=== PATIENT | female | born 1955 | race Caucasian/White ===

== ENCOUNTER 2016-08-12 13:24 | Outpatient (CLI) | payer OTHER | END 2016-08-12 13:25 | disposition home or self-care (01) | DX: G47.33 Obstructive sleep apnea (adult) (pediatric) (principal); G47.00 Insomnia, unspecified ==

== ENCOUNTER 2016-10-11 10:58 | Outpatient (CLI) | payer OTHER | END 2016-10-11 10:59 | disposition home or self-care (01) | LOC: SC 10:58 | PROVIDERS: ATTEND Nurse Practitioner Family | DX: G47.33 Obstructive sleep apnea (adult) (pediatric) (principal) | CPT/HCPCS: 99212; 99214 ==

== ENCOUNTER 2017-01-10 11:15 | Outpatient (CLI) | payer OTHER | END 2017-01-10 11:16 | disposition home or self-care (01) | LOC: SC 11:15 | PROVIDERS: ATTEND Nurse Practitioner Family | DX: G47.33 Obstructive sleep apnea (adult) (pediatric) (principal) | CPT/HCPCS: 99212; 99214 ==

== ENCOUNTER 2017-07-18 10:37 | Outpatient (CLI) | payer OTHER | END 2017-07-18 10:38 | disposition home or self-care (01) | LOC: SC 10:37 | PROVIDERS: ATTEND Nurse Practitioner Family | DX: G47.33 Obstructive sleep apnea (adult) (pediatric) (principal) | CPT/HCPCS: 99212; 99214 ==

== ENCOUNTER 2018-10-02 12:49 | Outpatient (CLI) | payer OTHER | END 2018-10-02 12:50 | disposition home or self-care (01) | LOC: SC 12:49 | PROVIDERS: ATTEND Internal Medicine Pulmonary Disease | DX: G47.33 Obstructive sleep apnea (adult) (pediatric) (principal) | CPT/HCPCS: 99212; 99213 ==

== ENCOUNTER 2018-12-01 14:06 | Emergency (ER) | payer OTHER ==
[2018-12-01 14:19] VITALS: BP 136/90
--- NOTE | 2018-12-01 15:25 | ED Physician Documentation ---
PD HPI GI BLEED - Stated complaint Stated Complaint: FEMALE - Chief complaint Chief Complaint: General - History obtained from History obtained from: Patient - History of Present Illness Timing - onset: How many weeks ago (3) Timing - duration: Weeks (3) Timing - details: Gradual onset, Waxing and waning Associated symptoms: BRBPR (occasional red blood; mostly having rectal pain, worse after BMs. Stool is formed and moderately firm. Not constipated.). No: Abdominal pain Contributing factors: No: Sick contact, Bad food Similar symptoms before: Diagnosis (hemorrhoids) Recently seen: Not recently seen Review of Systems Constitutional: denies: Fever, Chills Nose: denies: Rhinorrhea / runny nose, Congestion Throat: denies: Sore throat Respiratory: denies: Cough GI: denies: Nausea, Vomiting, Constipation : denies: Dysuria, Frequency PD PAST MEDICAL HISTORY - Past Medical History GI: Hemorrhoids Psych: Depression, Anxiety Musculoskeletal: Osteoarthritis - Past Surgical History Past Surgical History: Yes General: Bowel surgery HEENT: Tonsil/Adenoidectomy - Present Medications Home Medications: Ambulatory Orders Medication Instructions Recorded Confirmed Aspirin [Aspir 81] 81 mg PO DAILY #30 tablet. 07/25/13 05/16/14 Multivitamin [Multivitamins] 1 each PO 07/25/13 05/16/14 SUMAtriptan [Imitrex] 25 mg PO ONCE 07/25/13 05/16/14 Magnesium Hydroxide [Milk of 60 ml DAILY 10/04/13 05/16/14 Magnesia] Citalopram Hydrobromide 40 mg DAILY 05/16/14 05/16/14 [Citalopram HBr] Guanfacine HCl [Tenex] 2 mg PO QPM 05/16/14 05/16/14 Oxycodone HCl/Acetaminophen 1 - 2 each PO Q6H PRN #20 tablet 05/16/14 [Percocet 5-325 mg Tablet] Propranolol [Inderal] 10 mg DAILY 05/16/14 05/16/14 lamoTRIgine [LaMICtal] 25 mg BID 05/16/14 05/16/14 Docusate Sodium 100 mg PO DAILY #30 capsule 12/01/18 Hydrocodone/Acetaminophen [[place] 1 each PO Q6H PRN #15 tablet 12/01/18 5-325 Tablet] Hydrocortisone Acetate [Anucort-Hc] 25 mg RC DAILY #7 supp.rect 12/01/18 - Allergies Allergies/Adverse Reactions: Allergies Allergy/AdvReac Type Severity Reaction Status Date / Time No Known Drug Allergies Allergy Verified 12/01/18 14:19 - Social History Does the pt smoke?: No Smoking Status: Never smoker Does the pt drink ETOH?: No Does the pt have substance abuse?: No - Immunizations Immunizations: TDAP >10years/unknown PD ED PE NORMAL - Vitals Vital signs reviewed: Yes - General General: Alert and oriented X 3, No acute distress, Well developed/nourished - Cardiac Cardiac: RRR, No murmur - Respiratory Respiratory: Clear bilaterally - Abdomen Abdomen: Normal bowel sounds, Soft, Non tender, Non distended - Female Female : Deferred - Rectal Rectal: Other (external hemorrhoids swollen and tender without any appearance of thrombosed. Internal also with some swelling. No blood in rectum at this time. ) - Derm Derm: Normal color, Warm and dry Results - Vitals Vitals: Oxygen O2 Source Room air PD MEDICAL DECISION MAKING - ED course Complexity details: considered differential (hemorrhoid. Does not seem thrombosed. ), d/w patient Departure - Departure Disposition: 01 Home, Self Care Clinical Impression: Rectal pain Hemorrhoid Qualifiers: Hemorrhoid type: unspecified Qualified Code(s): K64.9 - Unspecified hemorrhoids Condition: Stable Record reviewed to determine appropriate education?: Yes Instructions: ED Hemorrhoids Follow-Up: MARK BOCANEGRA DO [Primary Care Provider] - Jeffry Blount MD [Provider Admit Priv/Credential] - Prescriptions: Docusate Sodium 100 mg PO DAILY #30 capsule Hydrocodone/Acetaminophen [[place] 5-325 Tablet] 1 each PO Q6H PRN #15 tablet PRN Reason: Pain Hydrocortisone Acetate [Anucort-Hc] 25 mg RC DAILY #7 supp.rect Comments: Your hemorrhoids seem very tender. I do not see or feel any thrombosed hemorrhoids that would need cutting open at this time. We will try some anti- inflammatory suppositories as well as a stool softener. Add pain medicine if needed for pain. Stay well-hydrated. He can continue the Preparation H and soaking baths. Follow-up with surgery, call for an appointment for early next week for follow- up on this. If not improved, they can do visual look with a sigmoidoscope or such or have other ideas on treatment. Discharge Date/Time: 12/01/18 16:08
[2018-12-01] MEDS ORDERED: HYDROcod/ACETAM 5/325 MG TABLET PO STA (15:42)
[2018-12-01] MEDS ORDERED: DOCUSATE SODIUM 100 MG CAPSULE PO STA (15:46)
== END 2018-12-01 16:08 | disposition home or self-care (01) ==
LOC: ED 14:06
DX: K62.89 Other specified diseases of anus and rectum (principal); K64.9 Unspecified hemorrhoids
CPT/HCPCS: 99283; 99284; A9270

== ENCOUNTER 2019-10-08 15:48 | Outpatient (CLI) | payer OTHER ==
[2019-10-08 16:39] VITALS: BP 130/66
--- NOTE | 2019-10-08 16:39 | SLEEP CARE CONSULTATION ---
Information from patient questionnaire entered by Mavis Barillas. I have reviewed and concur with the information entered by Mavis Barillas. This document represents the service I personally performed and the decisions made by me, Juliana Friend, RN, MSN, [employer]. History of Present Illness Service Date and Time: 10/08/2019 1548 Previous diagnosis: Very Severe, Obstructive Sleep Apnea-Hypopnea Syndrome AHI: 76.3 (in 2009) Reason for follow up: annual (last seen 2018) Equipment type: CPAP Equipment obtained from: [email or web address] (getting supplies as needed) Mask style: Nasal Backup mask available: Yes Last cushion change: 2 weeks ago Prior sleep studies: Yes Year and Where: 2009 - [facility] Type of Sleep Study: Polysomnography CPAP Compliance Data - Data Reviewed with Patient Average duration of nightly device use: 7hr 42 min Compliance rate %: 98.9 Current pressure setting (cmH2O): 10-13 Humidity settin Heated hose settin Average residual AHI: 1.2 Average large leak: 0 Subjective Missed days of use due to: reports: other (no ) Patient concerns: reports: nasal congestion (most nights, uses nasal spray, no interference of CPAP use ), dry mouth, nose, throat (dry mouth a few times a week ), other (tosses and turns every night for about an hour on average/ She does not read but does play solataire to relax in bed). 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 ) Initial [place] Sleepiness Scale score: 21 (in 2009) Current [place] Sleepiness Scale score: 18 Allergies and Home Medications Home medication list reviewed: No (no changes) Review of Systems Review of systems same as previous: Yes Physical Exam Blood Pressure: 130/66 Cuff size: long Heart Rate: 66 O2 Saturation: 98 Height: 5 ft 3 in Weight: 232 lb 12.8 oz (on low carb diet) Body Mass Index: 41.2 BMI Classification: Morbidly Obese Impression and Plan 1. Obstructive Sleep Apnea-Hypopnea Syndrome, very severe, with good treatment compliance and good apnea control. On CPAP therapy, the patient has better sleep quality and is more rested overall. However, she is waking to air hunger most nights even though the residual AHI is low. I will change her pressure slightly to [id number] until I get current CPAP data. Last data on card was until . She is to contact me if the pressure change is uncomfortable or does not resolve air hunger. Oral dryness can be reduced by adjusting humidity setting higher or heated hose lower or by adjusting both settings. Printed instructions will be given at check out on how to change humidity and heated hose settings. Rationale explaining why to change discussed. Patient advised that chronic oral dryness can affect dental health and advised to follow up with dentist. In addition, there are oral dryness products that can be used to reduce dryness. Patient to discuss best option with dentist. Patient's apnea severity and rationale for treatment to reduce apnea, improve sleep quality and reduce cardiovascular and cerebrovascular events was reviewed. 2. Insomnia, that seems to be from irregular wake time, concerns on mind, looking at clock. Thus she was advised to leave bedroom when unable to fall asleep after approximately 20 minutes and write out concerns as a release and then engage in quiet activity such as her solitaire until sleepy enough to go to bed. This is to be repeated as often as necessary to associate the bed with sleep. In addition, she is to set the alarm and cover the clock with rationale discussed. [employer] How to sleep better pamphlet given and reviewed. She did not want to complete diary and will follow up as needed per her request. 3. Possible Hypoxia reported by patient when recovering from knee surgery. Evidently the oxygen alarms went off frequently even with CPAP. She wonders if this is why she feels air hunger even with low residual AHI. Thus I will order an overnight pulse oximetry with CPAP use to evaluate if any hypoxia still present and if further evaluation is indicated with a manual titration study. If insurance denies, I will confer with Dr. Hammond. Patient agrees to plan to complete over night oximetry and CPAP titration if indicated. * Change auto CPAP pressure to 11-14 cmH2O * Notify me if snoring with mask or feeling that the pressure is too much or too little * Implement methods to reduce insomnia and oral dryness. * Attempt to lose weight * over night pulse oximetry with CPAP. * Call this office if any problems using CPAP * Return for follow up in 1 year if complaint, or sooner if concerns arise Addendum: Recent CPAP compliance received. 06/12 to 10/09/19 showed that patient used CPAP an average of 7 hours and 7 minutes a night with 97.5% compliance of over 4 hours of use demetria past 120 days. Her 90% pressure is 11.6cmH20 with a residual AHI of 1.0. Mask leaks average is zero. Thus follow up in one year unless further evaluation of hypoxia indicated from over night pulse oximetry. Visit Type: In Office Time Spent with Patient (minutes): 35 Provider Statement: I spent 100% of the Face to Face Visit with the patient with greater than 50% spent counseling the patient and coordination of care.
== END 2019-10-08 15:49 | disposition home or self-care (01) ==
LOC: SC 15:48
PROVIDERS: ATTEND Nurse Practitioner Family
DX: G47.33 Obstructive sleep apnea (adult) (pediatric) (principal); G47.00 Insomnia, unspecified; E66.01 Morbid (severe) obesity due to excess calories; Z68.41 Body mass index [BMI] 40.0-44.9, adult
CPT/HCPCS: 99212; 99214

== ENCOUNTER 2020-05-28 09:38 | Outpatient (CLI) | payer OTHER ==
--- NOTE | 2020-05-28 10:27 | SLEEP CARE CONSULTATION ---
Information from patient questionnaire entered by Mavis Barillas. I have reviewed and concur with the information entered by Mavis Barillas. This document represents the service I personally performed and the decisions made by , Pearl Ferrara ARNP. History of Present Illness Service Date and Time: 05/28/2020 09 Previous diagnosis: Very Severe, Obstructive Sleep Apnea-Hypopnea Syndrome AHI: 76.3 (in 2009) Reason for follow up: other (8 month to transfer DME) Equipment type: CPAP Equipment obtained from: [employer] (They were dropped due to a late payment, need new DME) Mask style: Nasal Backup mask available: Yes (old mask) Last cushion change: 2 weeks ago Prior sleep studies: Yes Year and Where: 2009 - [facility] HPI additional information: JOSEPH OWUSU was diagnosed to have very severe, AHI 76.3, obstructive sleep apnea-hypopnea syndrome and returned today for CPAP therapy 8 month, need DME transfer follow-up. CPAP Compliance Data - Data Reviewed with Patient Average duration of nightly device use: 7 hr 38 mins Compliance rate %: 92.2 (180 days) Current pressure setting (cmH2O): 11-14 Humidity settin Heated hose settin Average residual AHI: 1.1 Central apnea: 0.1 Obstructive apnea: 0.6 Average large leak: 0 Subjective Patient concerns: reports: air blowing in eyes (better with adjusting mask. she tosses and turns a lot in bed), mask leak noise, dry mouth, nose, throat (drinks water if wakes up at night for dryness), other (headache; extra air in mouth occasionally). denies: aerophagia, mask discomfort, condensation in mask/hose, nasal congestion, epistaxis Observed to snore while using device: No (once in a while does snore) Current pressure setting perceived as: comfortable On therapy, patient: reports: sleeping better, awakening more refreshed, being more awake and alert during the day, more rested overall. denies: drowsiness while driving Initial [place] Sleepiness Scale score: 21 (in 2009) Current [place] Sleepiness Scale score: 24 Allergies and Home Medications Home medication list reviewed: Yes (no changes) Review of Systems Review of systems same as previous: Yes (no changes) Physical Exam Heart Rate: 81 O2 Saturation: 98 Height: 5 ft 3 in Weight: 234 lb Body Mass Index: 41.4 BMI Classification: Morbidly Obese Impression and Plan 1. Obstructive Sleep Apnea-Hypopnea Syndrome, very severe, with good treatment compliance and good apnea control. On CPAP therapy, the patient has better sleep quality and is more rested overall. She has some mouth dryness and keeps water at the bedside to sip at night. Oral dryness can be reduced by adjusting humidity setting higher or heated hose lower or by adjusting both settings. Verbal instructions given on how to change humidity and heated hose settings with rationale explaining why to change. In addition, there are oral dryness products that can be used to reduce dryness such as Biotene products, Dry mouth rinse and Xylomelts. She is wearing the mask but is not actually sleeping whole time in mask. She is still sleepy from not sleeping more than 5 hours a night. She has a hard time keeping her mind quiet so she can go to sleep. She continues to sometimes take a day nap. She was advised to get out of bed when this happens and write out her thoughts. This can help her feel she has dealt with the worries and her mind can quiet down for sleeping. She voiced understanding. Patient is unable to get supplies at her current DME. We will transfer her care to another DME. I will have my restorative coordinator inform of her DME options. The patients CPAP is also over 5 years old and of reasonable use. Thus, the CPAP will be updated. The new CPAPs also have a better humidity system which could assist control of patients dryness symptoms. A DWO prescription will include an update of her machine be made. Compliance guidelines for new device and follow up discussed. Patient advised to contact this office if further supply problems. Patient's apnea severity and rationale for treatment to reduce apnea, improve sleep quality and reduce cardiovascular and cerebrovascular events was reviewed. * Continue autoCPAP pressure at 10-14 cmH2O * Transfer DME * Update CPAP machine * Notify me if snoring with mask or feeling that the pressure is too much or too little * Attempt to lose weight * Call this office if any problems using CPAP * Return for follow up 1 month after obtaining new machine, or sooner if concerns arise Counseling Topics: Spare mask, Weight loss health impact Visit Type: In Office Time Spent with Patient (minutes): 27 Provider Statement: I spent 100% of the Face to Face Visit with the patient with greater than 50% spent counseling the patient and coordination of care.
== END 2020-05-28 09:39 | disposition home or self-care (01) ==
LOC: SC 09:38
PROVIDERS: ATTEND Nurse Practitioner Family
DX: G47.33 Obstructive sleep apnea (adult) (pediatric) (principal); E66.01 Morbid (severe) obesity due to excess calories; Z68.41 Body mass index [BMI] 40.0-44.9, adult
CPT/HCPCS: 99212; 99213

== ENCOUNTER 2020-09-12 14:00 | Outpatient (CLI) | payer OTHER ==
--- NOTE | 2020-09-12 14:32 | SLEEP CARE CONSULTATION ---
Information from patient questionnaire entered by Mavis Barillas. I have reviewed and concur with the information entered by Mavis Barillas. This document represents the service I personally performed and the decisions made by , Pearl Ferrara ARNP. History of Present Illness Service Date and Time: 09/12/20201399 Previous diagnosis: Very Severe, Obstructive Sleep Apnea-Hypopnea Syndrome AHI: 76.3 (in 2009) Reason for follow up: first compliance after device update Equipment type: CPAP Equipment obtained from: [employer] (getting supplies as needed) Mask style: Nasal Backup mask available: Yes (old mask) Last cushion change: 1 week ago Prior sleep studies: Yes Year and Where: [address] - [facility] Type of Sleep Study: Polysomnography HPI additional information: JOSEPH OWUSU was diagnosed to have very severe, AHI 76.3, obstructive sleep apnea-hypopnea syndrome and returned today for CPAP therapy first compliance after updating device follow-up. CPAP Compliance Data - Data Reviewed with Patient Average duration of nightly device use: 7 hr 31 min Compliance rate %: 96.7 Current pressure setting (cmH2O): 11-14 Humidity settin Heated hose settin Average residual AHI: 0.8 Average large leak: 0 Subjective Missed days of use due to: reports: family emergency Patient concerns: reports: dry mouth, nose, throat (always have dry mouth), other (snore while using device). denies: aerophagia, mask discomfort, air blowing in eyes, mask leak noise, condensation in mask/hose, nasal congestion, epistaxis Observed to snore while using device: Yes (occasionally) Current pressure setting perceived as: comfortable On therapy, patient: reports: sleeping better, awakening more refreshed, being more awake and alert during the day, more rested overall. denies: drowsiness while driving Initial [place] Sleepiness Scale score: 21 (in 2009) Current [place] Sleepiness Scale score: 22 Allergies and Home Medications Home medication list reviewed: Yes (no changes) Review of Systems Review of systems same as previous: Yes (no changes) Physical Exam Heart Rate: 69 O2 Saturation: 98 Height: 5 ft 3 in Weight: 236 lb Body Mass Index: 41.8 BMI Classification: Morbidly Obese Impression and Plan 1. Obstructive Sleep Apnea-Hypopnea Syndrome, very severe, with good treatment compliance and excellent apnea control. On CPAP therapy, the patient has better sleep quality and is more rested overall. She states she gets dry mouth but this is chronic and occasionally snores through machine. Oral dryness can be reduced by adjusting humidity setting higher or heated hose lower or by adjusting both settings. Verbal instructions given on how to change humidity and heated hose settings with rationale explaining why to change. She voiced understanding. She has significant improvement of her sleep apnea and is satisfied with treatment at current pressure settings. We will make no changes at this time. Patient's apnea severity and rationale for treatment to reduce apnea, improve sleep quality and reduce cardiovascular and cerebrovascular events was reviewed. * Continue autoCPAP pressure at 11-14 cmH2O * Notify me if snoring with mask or feeling that the pressure is too much or too little * Attempt to lose weight * Call this office if any problems using CPAP * Return for follow up in 1 year, or sooner if concerns arise Counseling Topics: Spare mask, Weight loss health impact Visit Type: In Office Time Spent with Patient (minutes): 20 Provider Statement: I spent 100% of the Face to Face Visit with the patient with greater than 50% spent counseling the patient and coordination of care.
== END 2020-09-12 14:01 | disposition home or self-care (01) ==
LOC: SC 14:00
PROVIDERS: ATTEND Nurse Practitioner Family
DX: G47.33 Obstructive sleep apnea (adult) (pediatric) (principal); E66.01 Morbid (severe) obesity due to excess calories; Z68.41 Body mass index [BMI] 40.0-44.9, adult
CPT/HCPCS: 99212; 99213

== ENCOUNTER 2022-11-11 06:41 | Day surgery (SDC) | payer MEDICARE, OTHER ==
[2022-11-11] MEDS: LACTATED RINGERS 1,000 ML IV ONE ×2 (07:11→08:50)
[2022-11-11] MEDS: PROPARACAINE 0.5% OPHTH DROPS 15 ML ONE (07:15)
[2022-11-11] MEDS: KETOROLAC 0.45% OPHTH DROPS ONE (07:16)
[2022-11-11] MEDS: CYCLOPENTOLATE 1% OPHTH DROPS 2 ML ONE (07:17)
[2022-11-11] MEDS: PHENYLEPHRINE 2.5% OPHTH 2 ML DROPS ONE (07:18)
--- NOTE | 2022-11-11 07:47 | OPERATIVE REPORT ---
Operative Report - Other Other Information/Narrative: Date of Surgery: 11/11/22 Preop Dx: Retained lens fragment right eye. Cataract surgery was performed in the right eye on [id number]. Postop Dx: Same Procedure: Aspiration of retained lens fragment right eye Surgeon: Dr. Chilango Robison Anesthesia: Monitored anesthesia care Complications: None Operative Indications: This is a 67-year-old F under uncomplicated cataract surgery in the right eye on [id number]. at follow-up exam a nuclear fragment was noted in the inferior angle of the right eye. Indications for surgery were: - Potential inflammation, corneal damage, and vision loss from retained lens fragment The patient was consented at length concerning the risks and benefits of retained lens fragment removal after which the patient expressed a desire to proceed with surgery. Operative Procedure: The patient was taken into OR#3 and placed under monitored anesthesia care. A surgical time-out was conducted confirming correct patient, correct procedure, and correct surgical site. The patient was given topical anesthesia and then prepped and draped in the usual sterile fashion. The eye was entered at the 6 and 3 oclock positions. Intracameral Shugarcaine was injected into the anterior chamber followed by a dispersive viscoelastic. Infusion and aspiration were used to remove the retained lens fragmente and to vacuate the viscoelastic materials from the eye. The wounds were hydrated and the eye inflated to physiologic pressure using balanced salt solution. Approximately 0.25ml of a mixture of triamcinolone and moxifloxacin was injected trans-sclerally into the vitreous in the inferotemporal quadrant using a 30 gauge cannula. An additional 0.25ml of a mixture of triamcinolone and moxifloxacin was injected subconjunctivally in the superior quadrant for infection and inflammation prophylaxis. Wound integrity was checked with Weck- Karly sponges. The patient was taken from the operating room in good condition and given post-op instructions.
--- NOTE | 2022-11-11 08:11 | ANESTHESIA ---
Pre-Anesthesia VS, & Labs - Diagnosis senile combined cataract - Procedure right cataract Vital Signs: Temp Pulse Resp BP Pulse Ox O2 Flow Rate 36 C L 81 16 100 11/11/22 07:11 11/11/22 07:11 11/11/22 07:11 11/11/22 07:11 Height: 5 ft 3 in Weight (kg): 113 kg Body Mass Index: 44.1 BMI Classification: Morbidly Obese - NPO >8 hours - Is Patient ?: No Home Medications and Allergies SUMAtriptan [Imitrex] 25 mg PO ONCE 07/25/13 Allergies/Adverse Reactions: Allergies Allergy/AdvReac Type Severity Reaction Status Date / Time No Known Drug Allergies Allergy Verified 12/01/18 14:19 Anes History & Medical History - Anesthetic History Anesthesia Complications: reports: No previous complications - Medical History Cardiovascular: reports: None Pulmonary: reports: Sleep apnea, CPAP use Gastrointestinal: reports: Hemorrhoids Urinary: reports: None Musculoskeletal: reports: Osteoarthritis Skin: reports: None Smoking Status: Never smoker History of Cancer?: Yes - Surgical History General: reports: Bowel surgery Eyes Ears Nose Throat (EENT): reports: Tonsil/Adenoidectomy Orthopedic: reports: Knee replacement Exam General: Alert, Oriented x3 Dental: WNL Mouth Opening: Greater than 4 Fingerbreadths Neck Mobility: Normal Mallampati classification: III Respiratory: Lungs clear Cardiovascular: Regular rate Plan Anesthesia Type: MAC Consent for Procedure(s) Verified and Reviewed: Yes Code Status: Attempt Resuscitation ASA classification: 3-Severe systemic disease Is this case an emergency?: No
[2022-11-11] MEDS ORDERED: TRIAMCIN/MOXIFLOX OPHTHALMIC 0.6 ML VIAL IO ONE (08:12)
[2022-11-11] MEDS ORDERED: BSS/LIDOCAINE/EPINEPHRINE 1 ML VIAL ONE (08:12)
[2022-11-11] MEDS ORDERED: EPINEPHrine 1 MG/ML AMP ONE (08:12)
[2022-11-11] MEDS ORDERED: BRIMONIDINE 0.2% OPHTH DROPS 5 ML ONE (08:12)
[2022-11-11] MEDS ORDERED: TIMOLOL 0.5% OPHTH DROPS ONE (08:12)
[2022-11-11] MEDS ORDERED: MIDAZOLAM 2 MG/2 ML VIAL ONE (08:13)
[2022-11-11] MEDS: EPINEPHrine 1 MG/ML AMP IR ONE (08:33)
[2022-11-11] MEDS: TIMOLOL 0.5% OPHTH DROPS OPTH ONE (08:33)
[2022-11-11] MEDS: BRIMONIDINE 0.2% OPHTH DROPS 5 ML OPTH ONE (08:33)
[2022-11-11] MEDS: BSS/LIDOCAINE/EPINEPHRINE 1 ML SYRINGE IO ONE (08:34)
[2022-11-11] MEDS: TRIAMCIN/MOXIFLOX OPHTHALMIC 0.6 ML VIAL IO ONE (08:35)
[2022-11-11] MEDS: PROPARACAINE 0.5% OPHTH DROPS 15 ML RIGHTEYE ONE (08:35)
[2022-11-11] MEDS: VANCOMYCIN OPHTH (TOPICAL) 10 MG/ML SYRINGE TOP ONE (08:35)
[2022-11-11] MEDS ORDERED: ONDANSETRON 4 MG/2 ML VIAL ONE (08:36)
[2022-11-11] MEDS ORDERED: fentaNYL 100 MCG/2 ML VIAL ONE (08:39)
--- NOTE | 2022-11-11 09:00 | OPERATIVE REPORT ---
Operative Report - Other Other Information/Narrative: Date of Surgery: 11/11/22 Preop Dx: Visually significant cataract right eye. This was the first cataract surgery. Postop Dx: Same Procedure: Phacoemulsification with posterior chamber intraocular lens implant right eye Surgeon: Dr. Chilango Robison Anesthesia: Monitored anesthesia care Complications: None Operative Indications: This is a 67-year-old F with progressive vision loss in the right eye due to 2+ nuclear sclerotic, 3+ cortical, and 2+ posterior subcapsular cataract. Best corrected visual acuity was 20/40 with glare to 20/100 vision in the right eye. Indications for surgery were: - Overall decrease in vision - Difficulty seeing words on a computer screen - Difficulty reading - Difficulty seeing words, closed captions, or game scores on TV - Difficulty seeing street signs - Difficulty driving in low light or at night - Difficulty driving at night because of headlights from other vehicles - Difficulty with glare or bright lights in any situation - Difficulty tracking a golf ball - Decreased acuity with firearms The patient was consented at length concerning the risks and benefits of cataract surgery after which the patient expressed a desire to proceed with surgery. Operative Procedure: The patient was taken into OR#3 and placed under monitored anesthesia care. A surgical time-out was conducted confirming correct patient, correct procedure, and correct surgical site. The patient was given topical anesthesia and then prepped and draped in the usual sterile fashion. The eye was entered at the 6 and 3 oclock positions. Intracameral Shugarcaine was injected into the anterior chamber followed by a dispersive viscoelastic. A continuous-tear curvilinear capsulorhexis was performed. The nucleus was hydrodissected and phacoemulsified. The cortex was evacuated using automated infusion and aspiration. A cohesive viscoelastic was injected into the capsular bag and a 20.0 diopter intraocular lens was inserted into the bag. Infusion and aspiration were used to evacuate the viscoelastic materials from the eye. The wounds were hydrated and the eye inflated to physiologic pressure using balanced salt solution. Approximately 0.25ml of a mixture of triamcinolone and moxifloxacin was injected trans-sclerally into the vitreous in the inferotemporal quadrant using a 30 gauge cannula. An additional 0.25ml of a mixture of triamcinolone and moxifloxacin was injected subconjunctivally in the superior quadrant for infection and inflammation prophylaxis. Wound integrity was checked with Weck-Karly sponges. The patient was taken from the operating room in good condition and given post-op instructions.
[2022-11-11 09:01] VITALS: BP 118/54
--- NOTE | 2022-11-11 09:30 | ANESTHESIA POST OP EVALUATION ---
Anesthesia Post Eval - Post Anesthesia Eval Vitals: Last Vital Signs Temp 36.2 C L 11/11/22 08:57 Pulse 68 11/11/22 08:57 Resp 16 11/11/22 08:57 BP 118/54 L 11/11/22 08:57 Pulse Ox 100 11/11/22 08:57 O2 Flow Rate CV Function Including HR & BP: Stable Pain Control: Satisfactory Nausea & Vomiting: Negative Mental Status: Baseline Respiratory Status: Airway Patent Hydration Status: Satisfactory Anesthesia Complications: None
== END 2022-11-11 06:42 | disposition home or self-care (01) ==
LOC: SDS 06:41
PROVIDERS: ATTEND Ophthalmology
DX: H25.811 Combined forms of age-related cataract, right eye (principal); G47.33 Obstructive sleep apnea (adult) (pediatric); F41.9 Anxiety disorder, unspecified; E66.01 Morbid (severe) obesity due to excess calories; Z68.41 Body mass index [BMI] 40.0-44.9, adult

== ENCOUNTER 2022-12-16 06:42 | Day surgery (SDC) | payer MEDICARE, OTHER ==
[~2022-12-16 06:42] MED LIST: CYCLOPENTOLATE 1% OPHTH DROPS 2 ML ONE; KETOROLAC 0.45% OPHTH DROPS ONE; PHENYLEPHRINE 2.5% OPHTH 2 ML DROPS ONE; PROPARACAINE 0.5% OPHTH DROPS 15 ML ONE
--- NOTE | 2022-12-16 07:05 | ANESTHESIA ---
Pre-Anesthesia VS, & Labs - Diagnosis L senile combined cataract - Procedure L extraction cataract w IOL Height: 5 ft 3 in - NPO >8 hours - Is Patient ?: No - Lab Results Lab results reviewed: Yes Home Medications and Allergies Home Medications: Ambulatory Orders No Known Home Medications 12/15/22 No Known Home Medications 12/15/22 Allergies/Adverse Reactions: Allergies Allergy/AdvReac Type Severity Reaction Status Date / Time No Known Drug Allergies Allergy Verified 12/15/22 13:03 Anes History & Medical History - Anesthetic History Anesthesia Complications: reports: No previous complications Family history of Anesthesia Complications: Denies Family history of Malignant Hyperthermia: Denies - Medical History Cardiovascular: reports: None Pulmonary: reports: Sleep apnea, CPAP use Gastrointestinal: reports: Hemorrhoids Urinary: reports: None Musculoskeletal: reports: Osteoarthritis Skin: reports: None Smoking Status: Never smoker - Surgical History General: reports: Bowel surgery Eyes Ears Nose Throat (EENT): reports: Tonsil/Adenoidectomy Orthopedic: reports: Knee replacement Exam General: Alert, Oriented x3, Cooperative Dental: WNL Mouth Openin Fingerbreadth Neck Mobility: Normal Mallampati classification: II Thyromental Distance: 4-6 cm Respiratory: Lungs clear Cardiovascular: Regular rate Neurological: Normal speech Mental/Cognitive Status: Alert/Oriented X3, Normal for patient Cognitive Status: Within normal limits Plan Anesthesia Type: MAC Consent for Procedure(s) Verified and Reviewed: Yes Code Status: Attempt Resuscitation ASA classification: 3-Severe systemic disease Is this case an emergency?: No
[2022-12-16] MEDS ORDERED: LACTATED RINGERS 1,000 ML IV ONE ×3 (07:08→09:00)
[2022-12-16] MEDS ORDERED: MIDAZOLAM 2 MG/2 ML VIAL ONE (07:43)
[2022-12-16] MEDS ORDERED: TRIAMCIN/MOXIFLOX OPHTHALMIC 0.6 ML VIAL IO ONE ×2 (07:58→08:28)
[2022-12-16] MEDS ORDERED: EPINEPHrine 1 MG/ML AMP ONE (07:58)
[2022-12-16] MEDS ORDERED: BSS/LIDOCAINE/EPINEPHRINE 1 ML VIAL ONE (07:59)
[2022-12-16] MEDS ORDERED: TIMOLOL 0.5% OPHTH DROPS ONE (07:59)
[2022-12-16] MEDS ORDERED: BRIMONIDINE 0.2% OPHTH DROPS 5 ML ONE (07:59)
[2022-12-16] MEDS ORDERED: ONDANSETRON 4 MG/2 ML VIAL ONE (08:00)
[2022-12-16] MEDS ORDERED: BRIMONIDINE 0.2% OPHTH DROPS 5 ML OPTH ONE (08:28)
[2022-12-16] MEDS ORDERED: BSS/LIDOCAINE/EPINEPHRINE 1 ML SYRINGE IO ONE (08:28)
[2022-12-16] MEDS ORDERED: PROPARACAINE 0.5% OPHTH DROPS 15 ML LEFTEYE ONE (08:28)
[2022-12-16] MEDS ORDERED: VANCOMYCIN OPHTH (TOPICAL) 10 MG/ML SYRINGE TOP ONE (08:28)
[2022-12-16] MEDS ORDERED: TIMOLOL 0.5% OPHTH DROPS OPTH ONE (08:28)
[2022-12-16] MEDS ORDERED: fentaNYL 100 MCG/2 ML VIAL ONE (08:28)
[2022-12-16] MEDS ORDERED: EPINEPHrine 1 MG/ML AMP IR ONE (08:28)
--- NOTE | 2022-12-16 08:35 | OPERATIVE REPORT ---
Operative Report - Other Other Information/Narrative: Date of Surgery: 12/16/22 Preop Dx: Visually significant cataract left eye. Cataract surgery was performed in the right eye on [id number]. Postop Dx: Same Procedure: Phacoemulsification with posterior chamber intraocular lens implant left eye Surgeon: Dr. Chilango Robison Anesthesia: Monitored anesthesia care Complications: None Operative Indications: This is a 67-year-old F with progressive vision loss in the left eye due to 2+ nuclear sclerotic and 2-3+ cortical cataract. Best corrected visual acuity was 20/25 with glare to 20/50 vision in the left eye. Indications for surgery were: - Overall decrease in vision - Difficulty seeing words on a computer screen - Difficulty reading - Difficulty seeing words, closed captions, or game scores on TV - Difficulty seeing street signs - Difficulty driving in low light or at night - Difficulty driving at night because of headlights from other vehicles - Difficulty with glare or bright lights in any situation The patient was consented at length concerning the risks and benefits of cataract surgery after which the patient expressed a desire to proceed with surgery. Operative Procedure: The patient was taken into OR#3 and placed under monitored anesthesia care. A surgical time-out was conducted confirming correct patient, correct procedure, and correct surgical site. The patient was given topical anesthesia and then prepped and draped in the usual sterile fashion. The eye was entered at the 6 and 3 oclock positions. Intracameral Shugarcaine was injected into the anterior chamber followed by a dispersive viscoelastic. A continuous-tear curvilinear capsulorhexis was performed. The nucleus was hydrodissected and phacoemulsified. The cortex was evacuated using automated infusion and aspiration. A cohesive viscoelastic was injected into the capsular bag and a 20.0 diopter intraocular lens was inserted into the bag. Infusion and aspiration were used to evacuate the viscoelastic materials from the eye. The wounds were hydrated and the eye inflated to physiologic pressure using balanced salt solution. Approximately 0.25ml of a mixture of triamcinolone and moxifloxacin was injected trans-sclerally into the vitreous in the inferotemporal quadrant using a 30 gauge cannula. An additional 0.25ml of a mixture of triamcinolone and moxifloxacin was injected subconjunctivally in the superior quadrant for infection and inflammation prophylaxis. Wound integrity was checked with Weck-Karly sponges. The patient was taken from the operating room in good condition and given post-op instructions.
[2022-12-16 11:05] VITALS: BP 164/61; O2SAT 100
--- NOTE | 2022-12-16 11:59 | ANESTHESIA POST OP EVALUATION ---
Anesthesia Post Eval - Post Anesthesia Eval Vitals: Last Vital Signs Temp 36.3 C L 12/16/22 08:50 Pulse 71 12/16/22 08:50 Resp 16 12/16/22 08:50 BP 164/61 H 12/16/22 08:50 Pulse Ox 100 12/16/22 08:50 O2 Flow Rate CV Function Including HR & BP: Stable Pain Control: Satisfactory Nausea & Vomiting: Negative Mental Status: Baseline Respiratory Status: Airway Patent Hydration Status: Satisfactory Anesthesia Complications: None
== END 2022-12-16 06:43 | disposition home or self-care (01) ==
LOC: SDS 06:42
PROVIDERS: ATTEND Ophthalmology
DX: H25.812 Combined forms of age-related cataract, left eye (principal); G47.30 Sleep apnea, unspecified
CPT/HCPCS: 66984; A9270; J3490; J7120

== ENCOUNTER 2022-12-30 12:53 | Outpatient (CLI) | payer MEDICARE, OTHER ==
--- NOTE | 2022-12-30 13:43 | Sleep Patient Instructions ---
Sleep Center Visit Summary - Patient Visit Information Reason for Visit: Annual Visit for PAP therapy - Patient Instructions Additional Instructions: You will continue with CPAP therapy with pressure set at 11-14 cmH2O. A supply prescription will be updated with your DME. We encourage you to continue to try to lose weight. Please follow up with the sleep care office in 1 year. - Clinic Information Contact: [facility] [address] [place] [address] [email or web address] T: [phone]
--- NOTE | 2022-12-30 13:46 | SLEEP CARE CONSULTATION ---
Information from patient questionnaire entered by Haekem Ruvalcaba. I have reviewed and concur with the information entered by Hakeem Ruvalcaba. This document represents the service I personally performed and the decisions made by me, Pearl Ferrara ARNP. History of Present Illness Service Date and Time: 12/30/2022 1253 Previous diagnosis: Very Severe, Obstructive Sleep Apnea-Hypopnea Syndrome AHI: 76.3 (in 2009) Reason for follow up: annual (LAST SEEN 11/2021) Equipment type: CPAP (DREAMSTATION 2) Equipment obtained from: [employer] (getting supplies as needed) Mask style: Nasal pillows Backup mask available: Yes (old mask) Last cushion change: last week [facility]: [facility] Type of Sleep Study: Polysomnography HPI additional information: JOSEPH OWUSU was diagnosed to have very severe, AHI 76.3, obstructive sleep apnea-hypopnea syndrome and returned today for CPAP therapy annual follow-up. Sleep Study - Results Type of Sleep Study: Polysomnography Prior sleep studies: Yes [facility] Compliance Data - Data Reviewed with Patient Average duration of nightly device use: 7 HRS 39 MINS 35 SECS Compliance rate %: 98.9 (07/01/22-12/27/22; 180/180 days used) Current pressure setting (cmH2O): 11-14 Average residual AHI: 1.2 Central apnea: 0.1 Obstructive apnea: 0.6 Average large leak: 0 secs Subjective Patient concerns: denies: aerophagia, mask discomfort, air blowing in eyes, mask leak noise, condensation in mask/hose, nasal congestion, dry mouth, nose, throat, epistaxis Observed to snore while using device: Yes (just a few times, she has heard it) Current pressure setting perceived as: comfortable On therapy, patient: reports: sleeping better, awakening more refreshed, being more awake and alert during the day, more rested overall. denies: drowsiness while driving Initial [place] Sleepiness Scale score: 21 (in 2009) Current [place] Sleepiness Scale score: 22 (12/30/22) Allergies and Home Medications Known drug allergies: No Drug allergies reviewed: Yes Home medication list reviewed: Yes (no changes) Allergy and home medication list: Allergies No Known Drug Allergies Allergy (Verified 12/29/22 12:29) Home Medications Medication Instructions Recorded Confirmed Last Taken Type SUMAtriptan [Imitrex] 1 tab ORAL DAILY PRN 12/16/22 12/30/22 12/14/22 History Review of Systems Review of systems same as previous: No (CATARACT SURGERY) Physical Exam Vital signs obtained and entered by: HAKEEM Watts MA Blood Pressure: 118/72 (LEFT ARM) Cuff size: long Heart Rate: 72 O2 Saturation: 99 Height: 5 ft 3 in Weight: 253 lb Weight change since last visit: 8 lb gain Body Mass Index: 44.8 BMI Classification: Morbidly Obese Impression and Plan 1. Obstructive Sleep Apnea-Hypopnea Syndrome, very severe, with good treatment compliance and good apnea control. On CPAP therapy, the patient has better sleep quality and is more rested overall. Patient has significant improvement of their sleep apnea and is satisfied with current CPAP therapy. Patient denies problems with oral dryness, nasal congestion, epistaxis, skin irritation or aerophagia. Patient states she still struggles with daytime fatigue but contributes it to her anxiety that does not allow her to sleep well at night. I encouraged her to touch base with her primary doctor to get treatment for her anxiety and she voiced understanding. Patient's apnea severity and rationale for treatment to reduce apnea, improve sleep quality and reduce cardiovascular and cerebrovascular events was reviewed. I also reviewed the benefit of consistent device use of CPAP for depression, anxiety and migraines. 2. Obesity, unspecified. Currently patients BMI is 44.8. Obesity increases the risk of apnea, CPAP pressure requirements and overall health risks especially cardiovascular and diabetes. Thus patient is advised to lose weight. * Continue auto CPAP pressure at 11-14 cmH2O * Update supplies * Notify me if snoring with mask or feeling that the pressure is too much or too little * Attempt to lose weight * Call this office if any problems using CPAP * Return for follow up in 1 year, or sooner if concerns arise Counseling Topics: Spare mask, Weight loss health impact Prescriptions: Device supplies Visit Type: In Office Time Spent with Patient (minutes): 16 Provider Statement: I spent 100% of the Face to Face Visit with the patient with greater than 50% spent counseling the patient and coordination of care.
[2022-12-30 13:49] VITALS: BP 118/72; O2SAT 99
== END 2022-12-30 12:54 | disposition home or self-care (01) ==
LOC: SC 12:53
PROVIDERS: ATTEND Nurse Practitioner Family
DX: G47.33 Obstructive sleep apnea (adult) (pediatric) (principal); E66.01 Morbid (severe) obesity due to excess calories; Z68.41 Body mass index [BMI] 40.0-44.9, adult
CPT/HCPCS: 99212; G0463

== ENCOUNTER 2024-01-03 15:01 | Outpatient (CLI) | payer MEDICARE, OTHER ==
--- NOTE | 2024-01-03 15:45 | Sleep Patient Instructions ---
Sleep Center Visit Summary - Patient Visit Information Reason for Visit: Annual follow-up - Patient Instructions Additional Instructions: You will continue with CPAP therapy with pressure set at 11-14 cmH2O. A supply prescription will be updated with your DME supplier. I will order a verifying sleep study, someone will call to set that up with you. Please follow up with the sleep care office after sleep study to go over the results. - Clinic Information Contact: [facility] [address] [place] [address] [email or web address] T: [phone]
--- NOTE | 2024-01-03 15:48 | SLEEP CARE CONSULTATION ---
Information from patient questionnaire entered by Hakeem Ruvalcaba. I have reviewed and concur with the information entered by Hakeem Ruvalcaba. This document represents the service I personally performed and the decisions made by me, Pearl Ferrara ARNP. History of Present Illness Service Date and Time: 01/03/2024 1501 Previous diagnosis: Very Severe, Obstructive Sleep Apnea-Hypopnea Syndrome AHI: 76.3 (in 2009) Reason for follow up: annual (LAST SEEN 12/2022) Equipment type: CPAP (DREAMSTATION 2) Equipment obtained from: [employer] (getting supplies as needed) Mask style: Nasal pillows Backup mask available: Yes Last cushion change: last week [facility]: Yes [facility] Type of Sleep Study: Pol[facility] HPI additional information: JOSEPH OWUSU was diagnosed to have very severe, AHI 76.3, obstructive sleep apnea-hypopnea syndrome and returned today for CPAP therapy annual follow-up. Sleep Study - Results Type of Sleep Study: Polysomnography [facility]: Yes [facility] Compliance Data - Data Reviewed with Patient Average duration of nightly device use: 7 HRS 13 MINS 48 SECS Compliance rate %: 99.4 (07/02/23-12/28/23; 180/180 days used) Current pressure setting (cmH2O): 11-14 Average residual AHI: 1.1 Central apnea: 0 Obstructive apnea: 0.6 Hypopnea: 0.5 Average large leak: 0 secs Subjective Patient concerns: reports: dry mouth, nose, throat (occasional), other (SNORING WHILE USING DEVICE). denies: aerophagia, mask discomfort, air blowing in eyes, mask leak noise, condensation in mask/hose, nasal congestion, epistaxis Observed to snore while using device: Yes (once in a while) Current pressure setting perceived as: comfortable On therapy, patient: reports: drowsiness while driving, other (napping more very day). denies: sleeping better, more rested overall Initial [place] Sleepiness Scale score: 21 (in 2009) Current [place] Sleepiness Scale score: 22 (01/03/24) Allergies and Home Medications Known drug allergies: No Drug allergies reviewed: Yes Home medication list reviewed: Yes (no changes) Allergy and home medication list: Allergies No Known Drug Allergies Allergy (Verified 01/03/24 15:13) Review of Systems Review of systems same as previous: Yes (NO CHANGE) Physical Exam Vital signs obtained and entered by: HAKEEM Watts MA Blood Pressure: 146/73 (RIGHT ARM) Cuff size: long Heart Rate: 78 O2 Saturation: 97 Height: 5 ft 3 in Weight: 244 lb 3.2 oz Body Mass Index: 43.2 BMI Classification: Morbidly Obese Impression and Plan 1. Obstructive Sleep Apnea-Hypopnea Syndrome, very severe, with good treatment compliance and good apnea control. On CPAP therapy, the patient has better sleep quality and is more rested overall. Patient has significant improvement of her sleep apnea and is comfortable with CPAP therapy. However, patient has been having increasing daytime fatigue and sleepiness. She is napping nearly every day. She says her primary doctor is wanting to order a another sleep study. Her therapy seems to be working well but because of this increasing daytime fatigue and sleepiness I would like to get a new baseline. Her last sleep study was in 2009. I will order a sleep study and get authorization. We will see her in follow up after the sleep study. Patient's apnea severity and rationale for treatment to reduce apnea, improve sleep quality and reduce cardiovascular and cerebrovascular events was reviewed. I also reviewed the benefit of consistent device use of CPAP for depression/anxiety, migraines. 2. Obesity, unspecified. Currently patients BMI is 43.2. Obesity increases the risk of apnea, CPAP pressure requirements and overall health risks especially cardiovascular and diabetes. Thus patient is advised to lose weight. * Continue auto CPAP pressure at 11-14 cmH2O * PSG to verify diagnosis and severity * Update supply prescription * Notify me if snoring with mask or feeling that the pressure is too much or too little * Attempt to lose weight * Call this office if any problems using CPAP * Return for follow up after sleep study to review results, or sooner if concerns arise Counseling Topics: Weight loss health impact Prescriptions: Device supplies Follow up with Sleep Care in: 1 year Plan: PSG to verify diagnosis and severity Visit Type: In Office Time Spent with Patient (minutes): 21 Provider Statement: I spent 100% of the Face to Face Visit with the patient with greater than 50% spent counseling the patient and coordination of care.
[2024-01-03 15:53] VITALS: BP 146/73; O2SAT 97
== END 2024-01-03 15:02 | disposition home or self-care (01) ==
LOC: SC 15:01
PROVIDERS: ATTEND Nurse Practitioner Family
DX: G47.33 Obstructive sleep apnea (adult) (pediatric) (principal); E66.01 Morbid (severe) obesity due to excess calories; Z68.41 Body mass index [BMI] 40.0-44.9, adult
CPT/HCPCS: 99213; G0463; 99212